=== PATIENT | male | born 1985 ===

== ENCOUNTER 2018-10-25 11:42 | Outpatient (CLI) | payer BC, SELFPAY ==
--- NOTE | 2018-10-25 11:13 | DI.RAD_ITS ---
SYMPTOMS/DIAGNOSIS: RT KNEE PAIN, PREVIOUS ARTHROSCOPY RIGHT KNEE: Three views were obtained. There is narrowing of the medial tibiofemoral cartilaginous joint space. There also appears to be narrowing of the cartilaginous joint space of the patellofemoral joint. Prominent hypertrophic spurring is noted involving the margins of all the joints of the knee. CONCLUSION: DJD as described above.
== END 2018-10-25 12:02 ==
PROVIDERS: PCP Nurse Practitioner Acute Care; Visit Provider Student in an Organized Health Care Education/Training Program
DX: M25.561 Pain in right knee (principal); M17.11 Unilateral primary osteoarthritis, right knee
CPT/HCPCS: 73562

== ENCOUNTER 2023-01-16 14:54 | Outpatient (CLI) | payer BC, SELFPAY ==
--- NOTE | 2023-01-16 13:30 | DI.RAD_ITS ---
Exam(s) XR KNEE RT 3V AP,LAT,JOLIE XR KNEE LT 3V AP,LAT,JOLIE XR STANDING ALIGNMENT EXAM: XR STANDING ALIGNMENT and XR knee RT and LT 3 V CLINICAL HISTORY: RIGHT KNEE OA. TECHNIQUE: 2D digital imaging was performed. Twelve images were obtained. COMPARISON: CR XR knee RT 3V AP,lat,jolie from 10/25/2018 FINDINGS: BONES: The hips are well maintained. In the right knee, there are marked degenerative changes involv ing all 3 joint compartments characterized by joint space narrowing and osteophytes. The findings ar e most marked in the patellofemoral joint. There is no joint effusion. The bones are intact and nor johann mineralized. In the left knee, moderate to severe degenerative changes are present. The findi ngs are most marked in the patellofemoral joint. There is no joint effusion. The ankles are well ma intained.The left lower extremity is 1.5 cm longer than the right lower extremity. SOFT TISSUE: Normal. IMPRESSION: Marked right and moderately severe osteoarthritis of the knees. DATA REPOSITORY: RADIATION DOSE DELIVERED:
== END 2023-01-16 14:55 | disposition home or self-care (01) ==
LOC: DIORS 14:55
PROVIDERS: PCP Nurse Practitioner Acute Care; Visit Provider Physician Assistant
DX: M17.0 Bilateral primary osteoarthritis of knee
CPT/HCPCS: 73562; 77073